=== PATIENT | female | born 1975 | race Caucasian/White ===

== ENCOUNTER 2017-03-05 07:53 | Day surgery (SDC) | payer BC ==
[2017-03-05 08:48] LABS: PROTHROMBIN TIME 13.3 SEC (11.4-15.4)
[2017-03-05 08:49] LABS: PARTIAL THROMBOPLASTIN TIME 36.5 SEC (23.5-35.8)
--- NOTE | 2017-03-05 11:07 | RADIOLOGY REPORT (SQ) ---
EXAM DESCRIPTION: LUMBAR PUNCTURE; FLUORO/NEEDLE PLACEMENT/SPINE COMPLETED DATE/TIME: 03/05/2017 10:57 am REASON FOR STUDY: HEADACHES R51 HEADACHE COMPARISON: None. FLUOROSCOPY TIME: 10 seconds 1 digital radiographic images saved to PACS. TECHNIQUE: Fluoroscopic guided lumbar puncture. LIMITATIONS: None. PROCEDURE: After written consent and assessment were obtained, the patient was brought into the fluo roscopy room and placed prone on the table. The patient's lower back was prepped in a sterile fashio n and an entry site was selected under live fluoroscopic guidance. The entry site was anesthetized wi th 4.5 mL of 1% lidocaine. A 22 gauge needle was advanced through the skin and into the thecal sac at the right paracentral L2-3 level. After approximately 8 ml was drained, the needle was removed and a sterile bandage was placed of the site. Specimens were sent to the lab for testing. A fluoroscopic spot image was saved to PACS confirming level access. FINDINGS: Clear CSF, opening pressure 12 cm of water, closing pressure 10 cm of water. Fluid sent f or testing as per Dr. Capps IMPRESSION: Lumbar puncture under fluoroscopy. No immediate complication. COMMENT: Patient medication list reviewed: Yes- Quality ID# [id number]:Eligible professional attests to doc umenting in the medical record they obtained, updated, or reviewed the patient's current medications. . Quality ID 145: Final reports for procedures using fluoroscopy that document radiation exposure marcelina hpil, or exposure time and number of fluorographic images (if radiation exposure indices are not avail able) TECHNICAL DOCUMENTATION: JOB ID: [id number] [employer]- All Rights Reserved
--- NOTE | 2017-03-05 11:07 | RADIOLOGY REPORT (SQ) ---
EXAM DESCRIPTION: LUMBAR PUNCTURE; FLUORO/NEEDLE PLACEMENT/SPINE COMPLETED DATE/TIME: 03/05/2017 10:57 am REASON FOR STUDY: HEADACHES R51 HEADACHE COMPARISON: None. FLUOROSCOPY TIME: 10 seconds 1 digital radiographic images saved to PACS. TECHNIQUE: Fluoroscopic guided lumbar puncture. LIMITATIONS: None. PROCEDURE: After written consent and assessment were obtained, the patient was brought into the fluo roscopy room and placed prone on the table. The patient's lower back was prepped in a sterile fashio n and an entry site was selected under live fluoroscopic guidance. The entry site was anesthetized wi th 4.5 mL of 1% lidocaine. A 22 gauge needle was advanced through the skin and into the thecal sac at the right paracentral L2-3 level. After approximately 8 ml was drained, the needle was removed and a sterile bandage was placed of the site. Specimens were sent to the lab for testing. A fluoroscopic spot image was saved to PACS confirming level access. FINDINGS: Clear CSF, opening pressure 12 cm of water, closing pressure 10 cm of water. Fluid sent f or testing as per Dr. Capps IMPRESSION: Lumbar puncture under fluoroscopy. No immediate complication. COMMENT: Patient medication list reviewed: Yes- Quality ID# [id number]:Eligible professional attests to doc umenting in the medical record they obtained, updated, or reviewed the patient's current medications. . Quality ID 145: Final reports for procedures using fluoroscopy that document radiation exposure marcelina phil, or exposure time and number of fluorographic images (if radiation exposure indices are not avail able) TECHNICAL DOCUMENTATION: JOB ID: [id number] [employer]- All Rights Reserved
[2017-03-05 12:30] VITALS: BP 122/80
[2017-03-05 12:57] LABS: APPEARANCE ALL TUBES CLEAR; RBC DILUENT USED NONE USED; RBC DILUTION FACTOR 1; RBC SIDE 1 1; RBC SIDE 2 3; TOTAL RBC SQUARES COUNTED 225
[2017-03-05 12:58] LABS: WHITE BLOOD CELL,CSF 2 /uL (0-5)
[2017-03-05 13:05] LABS: GLUCOSE,CSF 51 mg/dL (40-70)
[2017-03-06 16:39] LABS: ALBUMIN CSF 34 mg/dL (11-48); ALBUMIN SERUM 4.1 g/dL (3.5-5.5); CSF IGG INDEX 0.5 (0.0-0.7); IGG/ALBUMIN RATIO CSF 0.08 (0.00-0.25); IMMUNOGLOBULIN G CSF 2.8 mg/dL (0.0-8.6); IMMUNOGLOBULIN G SERUM 662 mg/dL (700-1600)
[2017-03-07 11:15] LABS: CSF/SERUM ALBUMIN INDEX 8 (0-8)
== END 2017-03-05 12:25 | disposition home or self-care (01) ==
LOC: RAD 07:53
PROVIDERS: ATTEND Specialist
PROC: 009U3ZX Drainage of Spinal Canal, Percutaneous Approach, Diagnostic (ICD-10-PCS; principal; 2017-03-05)
DX: G35 Multiple sclerosis (principal); R51 Headache; Z87.891 Personal history of nicotine dependence
CPT/HCPCS: 36415; 62270; 77003; 82784; 82945; 83916; 84157; 85610; 85730; 87070; 87205; 89050

== ENCOUNTER 2019-11-14 16:19 | Observation (INO) | payer BC ==
[2019-11-14] MEDS ORDERED: RINGERS SOLUTION,LACTATED 1,000 ML IV ONE (16:33)
[2019-11-14] MEDS ORDERED: ONDANSETRON HCL INJ/PF 4 MG/2 ML SDV IV ONE (16:33)
[2019-11-14] MEDS ORDERED: KETOROLAC TROMETHAMINE INJ/PF 30 MG/1 ML SDV IV ONE (16:47)
[2019-11-14 16:49] LABS: ABSOLUTE BASOPHILS # (AUTO) 0.1 10^3/uL (0.0-0.2); ABSOLUTE EOSINOPHILS # (AUTO) 0.1 10^3/uL (0.0-0.6); ABSOLUTE LYMPHOCYTES (AUTO) 2.4 10^3/uL (0.5-4.7); ABSOLUTE MONOCYTES (AUTO) 0.4 10^3/uL (0.1-1.4); ABSOLUTE NEUT (AUTO) 3.9 10^3/uL (1.7-8.2); BASOPHILS % (AUTO) 0.8 % (0-2); EOSINOPHILS % (AUTO) 0.9 % (0-6); HEMATOCRIT 34.8 % (36.0-47.0); HEMOGLOBIN 12.4 g/dL (12.0-15.5); MEAN CORPUSCULAR HEMOGLOBIN 33.9 pg (27.0-33.4); MEAN CORPUSCULAR HGB CONC 35.7 g/dL (32.0-36.0); MEAN CORPUSCULAR VOLUME 95 fl (80-97); MONOCYTES % (AUTO) 6.5 % (3-13); PLATELET COUNT 359 10^3/uL (150-450); RED BLOOD COUNT 3.66 10^6/uL (3.72-5.28); RED CELL DISTRIBUTION WIDTH 12.5 % (11.5-14.0); SEGMENTED NEUTROPHILS % (AUTO) 56.8 % (42-78); TOTAL CELLS COUNTED % (AUTO) 100 %; WHITE BLOOD COUNT 6.8 10^3/uL (4.0-10.5)
--- NOTE | 2019-11-14 16:50 | ER Document Report ---
ED General - General Stated Complaint: SEIZURE Time Seen by Provider: 11/14/19 16:27 Notes: 44-year-old woman presents to the emergency department with episodes of shaking- like behavior's EMS is called and she was given 5 mg of Versed intranasally. Patient was brought to the emergency department here when she was on the gurney began having shaking episodes which spontaneously stopped. Minutes afterwards patient was alert and able to communicate effectively. She denies a history of known migraines. She complains of headache and chest pressure. Denies any inju ry or associated pain related to the episodes. Daughter now at the bedside 1650 p.m., she notes that her mom was with friends at the driving range. Patient states that she felt like she was going to pass out, friends describe her as passing out, responsive and then having shaking episodes x4. EMS was called. TRAVEL OUTSIDE OF THE [place] IN LAST 30 DAYS: No - Related Data Allergies/Adverse Reactions: No Known Allergies Allergy (Verified 11/08/12 11:45) Past Medical History - Social History Smoking Status: Unknown if Ever Smoked Family History: CAD, Other - [place] - Past Medical History Cardiac Medical History: Denies: Hx Coronary Artery Disease, Hx Heart Attack, Hx Hypertension Pulmonary Medical History: Reports: Hx COPD, Hx Pneumonia Denies: Hx Asthma, Hx Bronchitis Neurological Medical History: Reports: Hx Migraine. Denies: Hx Cerebrovascular Accident, Hx Seizures Musculoskeletal Medical History: Denies Hx Arthritis Psychiatric Medical History: Reports: Hx Anxiety, Hx Depression Past Surgical History: Reports: Hx Hysterectomy - Immunizations Hx Diphtheria, Pertussis, Tetanus Vaccination: Yes Review of Systems - Review of Systems Notes: Constitutional: Negative for fever. HENT: Negative for sore throat. Eyes: Negative for visual changes. Cardiovascular: + chest pain. Respiratory: Negative for shortness of breath. Gastrointestinal: Negative for abdominal pain, vomiting or diarrhea. Genitourinary: Negative for dysuria. Musculoskeletal: Negative for back pain. Skin: Negative for rash. Neurological: + Syncope + seizure-like activity, + headaches 10 point ROS negative except as marked above and in HPI. Physical Exam - Vital signs Vitals: Resp BP Pulse Ox 21 H 149/95 H 99 11/14/19 17:01 11/14/19 17:01 11/14/19 17:01 - Notes Notes: PHYSICAL EXAMINATION: Physical Exam: General: Well-nourished well-developed in no acute distress except episodic shaking and itching. HEENT: NC/AT, pupils equal round and reactive to light, MM moist,nares clear, oropharynx clear, airway patent Neck: supple, no adenopathy, no masses. Good range of motion Lungs: clear, no wheezing, no rales no rhonchi CVS: Regular rate and rhythm no murmur gallop or rub Abdomen: Soft, active, nontender, no masses, no hepatosplenomegaly Ext: No edema, clubbing or cyanosis. Neuro: Alert and responsive, moving all 4 extremities on command, cranial nerves intact, no focal findings Skin: Intact no open lesions, no rash PSYCH: Anxious, shaky, when having the shaking episodes, questions appropriately, denies new stressors. Course - Re-evaluation Re-evalutation: 11/14/19 23:33 Patient is more more episodes of shaking in the emergency department with arms clenched and shaking her arms and legs. She has been able to answer questions and respond during the episodes and coached to take deep breaths and relax. The episodes resolve however, return. She is given Ativan on occasion and resolution of the symptoms. She has no history of seizures in the past. Patient notes that she was started on Xanax after and ended a relationship/separation approximately 5 years ago. He denies any new stressors. States that she is began having chest pain on 11/13/2019, the episodes have been intermittent and continued with a worsening episode today prior to the syncopal episode and seizure-like activity. 11/14/19 23:37 HEART Score: HEART score for chest pain patients Score Slightly suspicious 0 ECG Normal 0 45-65 year 1 Risk factors No risk factors known 0 Troponin =normal limit 0 Total 1 If HEART score is = 3 AND both tronponin measurments are normal, the 30 day risk of a major adverse cardiac event (all-cause mortality, myocardia infarction or need for coronary revscularization) is < 1% (Sensitivity 100%, NPV 100%). 11/15/19 01:01 I discussed the patient with the hospitalist Dr. Cloud ,he will admit the patient to telemetry for close monitoring and further evaluation. - Vital Signs Vital signs: Temp Pulse Resp BP Pulse Ox 97.6 F 14 117/72 99 11/14/19 23:40 11/15/19 00:01 11/15/19 00:01 11/15/19 00:01 - Laboratory Result Diagrams: 11/14/19 16:30 11/14/19 16:30 Laboratory results interpreted by me: 11/14/19 11/14/19 16:30 17:01 RBC 3.66 L Hct 34.8 L MCH 33.9 H Urine Blood SMALL H I have reviewed laboratory data and used this information for the treatment decisions regarding the patient. - Diagnostic Test Radiology reviewed: Image reviewed, Reports reviewed - CT head: No acute findings Chest x-ray: No acute infiltrate or effusion, normal cardiac silhouette - EKG Interpretation by Me EKG shows normal: Sinus rhythm - Normal sinus rhythm, rate 66. No acute ST or T wave abnormalities seen. Discharge - Discharge Clinical Impression: Episode of shaking Syncope Qualifiers: Syncope type: unspecified Qualified Code(s): R55 - Syncope and collapse Chest pain Qualifiers: Chest pain type: unspecified Qualified Code(s): R07.9 - Chest pain, unspecified Condition: Good Disposition: ADMITTED OBSERVATION Admitting Provider: Pedro Luis (Hospitalist) Unit Admitted: Telemetry
[2019-11-14 17:10] LABS: ALBUMIN 4.2 g/dL (3.5-5.0); ALKALINE PHOSPHATASE 52 U/L (38-126); ANION GAP 8 (5-19); ASPARTATE AMINO TRANSFERASE 22 U/L (14-36); BILIRUBIN,TOTAL 0.3 mg/dL (0.2-1.3); BLOOD UREA NITROGEN 12 mg/dL (7-20); CALCIUM 9.5 mg/dL (8.4-10.2); CARBON DIOXIDE 26 mmol/L (22-30); CHLORIDE 107 mmol/L (98-107); GLUCOSE 89 mg/dL (75-110); POTASSIUM 3.7 mmol/L (3.6-5.0)
[2019-11-14 17:20] LABS: CREATINE KINASE MB 1.34 ng/mL (<4.55)
[2019-11-14 17:28] LABS: TROPONIN I < 0.012 ng/mL
[2019-11-14 17:37] LABS: APPEARANCE,URINE CLEAR; BILIRUBIN,URINE NEGATIVE (NEGATIVE); COLOR,URINE COLORLESS; GLUCOSE, URINE NEGATIVE (NEGATIVE); KETONES,URINE NEGATIVE (NEGATIVE); LEUKOCYTE ESTERASE,URINE NEGATIVE (NEGATIVE); NITRITE,URINE NEGATIVE (NEGATIVE); PROTEIN,URINE NEGATIVE (NEGATIVE); URINE SPECIFIC GRAVITY 1.004; UROBILINOGEN,URINE NEGATIVE mg/dL (<2.0)
--- NOTE | 2019-11-14 17:44 | RADIOLOGY REPORT (SQ) ---
EXAM DESCRIPTION: CHEST SINGLE VIEW COMPLETED DATE/TIME: 11/14/2019 4:25 pm REASON FOR STUDY: Chest pain COMPARISON: 03/04/2016 EXAM PARAMETERS: NUMBER OF VIEWS: One view. TECHNIQUE: Single frontal radiographic view of the chest acquired. RADIATION DOSE: NA LIMITATIONS: None. FINDINGS: LUNGS AND PLEURA: Lungs are hyperinflated. No focal consolidation or pleural effusion. N o pneumothorax. MEDIASTINUM AND HILAR STRUCTURES: No masses. Contour normal. HEART AND VASCULAR STRUCTURES: Heart normal in size. Normal vasculature. BONES: No acute findings. HARDWARE: None in the chest. OTHER: No other significant finding. IMPRESSION: NO ACUTE RADIOGRAPHIC FINDING IN THE CHEST. TECHNICAL DOCUMENTATION: JOB ID: [id number] 2010 [employer]- All Rights Reserved Reading location - IP/workstation name: [email or web address]
[2019-11-14] MEDS ORDERED: LORAZEPAM INJ 2 MG/1 ML VIAL IV ONE (17:55)
--- NOTE | 2019-11-14 18:01 | RADIOLOGY REPORT (SQ) ---
EXAM DESCRIPTION: CT HEAD WITHOUT COMPLETED DATE/TIME: 11/14/2019 4:21 pm REASON FOR STUDY: New Seizure COMPARISON: None. TECHNIQUE: Axial images acquired through the brain without intravenous contrast. Images reviewed wi th bone, brain and subdural windows. Additional sagittal and coronal reconstructions were generated. Images stored on PACS. All CT scanners at this facility use dose modulation, iterative reconstruction, and/or weight based d osing when appropriate to reduce radiation dose to as low as reasonably achievable (ALARA). [facility]: Dose Right [facility]: CareDose [facility]: Dose Right [facility]: Teradose 4D [facility]: Manyeta RADIATION DOSE: CT Rad equipment meets quality standard of care and radiation dose reduction techniq ues were employed. CTDIvol: 53.2 mGy. DLP: 991 mGy-cm. mGy. LIMITATIONS: None. FINDINGS: VENTRICLES: Normal size and contour. CEREBRUM: No masses. No hemorrhage. No midline shift. No evidence for acute infarction. Normal gra y/white matter differentiation. No areas of low density in the white matter. CEREBELLUM: No masses. No hemorrhage. No alteration of density. No evidence for acute infarction. EXTRAAXIAL SPACES: No fluid collections. No masses. ORBITS AND GLOBE: No intra- or extraconal masses. Normal contour of globe without masses. CALVARIUM: No fracture. PARANASAL SINUSES: No fluid or mucosal thickening. SOFT TISSUES: No mass or hematoma. OTHER: No other significant finding. IMPRESSION: No acute intracranial hemorrhage, mass, or evidence of acute territorial infarct. EVIDENCE OF ACUTE STROKE: NO. COMMENT: Quality ID # [id number]: Final reports with documentation of one or more dose reduction techniques (e.g., Automated exposure control, adjustment of the mA and/or kV according to patient size, use of iterative reconstruction technique) TECHNICAL DOCUMENTATION: JOB ID: [id number] 2010 [employer]- All Rights Reserved Reading location - IP/workstation name: [email or web address]
--- NOTE | 2019-11-14 21:34 | EKG REPORT ---
SEVERITY:- NORMAL ECG - SINUS RHYTHM : Confirmed by: González Gilmore MD 14-Nov-2019 21:32:53
[2019-11-14] MEDS ORDERED: ALPRAZOLAM 0.5 MG TABLET PO ONE (21:43)
[2019-11-14] MEDS ORDERED: ACETAMINOPHEN 325 MG TABLET PO ONE (21:49)
[2019-11-14 22:16] LABS: URINE AMPHETAMINES SCREEN NEGATIVE; URINE BARBITURATES SCREEN NEGATIVE; URINE BENZODIAZEPINES SCREEN UNCONFIRMED POSITIVE; URINE COCAINE SCREEN NEGATIVE; URINE MARIJUANA (THC) SCREEN NEGATIVE; URINE METHADONE SCREEN NEGATIVE; URINE PHENCYCLIDINE SCREEN NEGATIVE
--- NOTE | 2019-11-15 01:41 | PDOC H&P ---
History of Present Illness Admission Date/PCP: 11/15/19 01:31 ZENAIDA MILLER Patient complains of: syncope and siezure like activity History of Present Illness: PERCY GUERRIER is a 44 year old female with a past medical history of migraine headaches and not much else [place] She states that she passed out in the truck. People driving with her reported that she was shaking. When she woke up she was still shaking. She does not remember the event. There are various symptoms that she reports over the several days prior including chest pain. It was dull and constant but she also characterizes it as shooting. She felt lightheaded and nauseous but no vomiting. She states that she had diplopia yesterday. There was no urinary incontinence and no tongue biting. She reports that nothing has happened like this before. The emergency department she was shaking and Dr. Daniel was able to talk her through to settle her and stop shaking. Evaluation revealed a normal CT scan and chest x- ray. EKG was normal. Serum chemistries and CBC were normal as well. Her troponins were less than 0.012. She will be admitted to the hospital service and monitored on telemetry overnight. Past Medical History Cardiac Medical History: Denies: Coronary Artery Disease, Myocardial Infarction, Hypertension Pulmonary Medical History: Reports: Chronic Obstructive Pulmonary Disease (COPD), Pneumonia Denies: Asthma, Bronchitis Neurological Medical History: Reports: Migraine Denies: Seizures Musculoskeltal Medical History: Denies: Arthritis Psychiatric Medical History: Reports: Depression Hematology: Reports: Anemia Past Surgical History Past Surgical History: Reports: Hysterectomy Social History Information Source: Patient Lives with: Family Smoking Status: Former Smoker Electronic Cigarette use?: No Frequency of Alcohol Use: Social Hx Recreational Drug Use: No Hx Prescription Drug Abuse: No - Advance Directive Resuscitation Status: Full Code Family History Family History: CAD, Other - [place] Parental Family History Reviewed: Yes Children Family History Reviewed: Yes Sibling(s) Family History Reviewed.: Yes Medication/Allergy Home Medications: Alprazolam 1 tab PO TIDP PRN 03/04/16 Butalbital/Acetaminophen [Bupap 50 mg-300 mg Tablet] 1 tab PO ASDIR PRN 03/04/16 Estradiol 1 tab PO DAILY 03/04/16 Topiramate 1 tab PO DAILY 03/04/16 Allergies/Adverse Reactions: No Known Allergies Allergy (Verified 11/08/12 11:45) Physical Exam Vital Signs: Temp Pulse Resp BP Pulse Ox 97.6 F 14 117/72 99 11/14/19 23:40 11/15/19 00:01 11/15/19 00:01 11/15/19 00:01 Intake & Output 11/13/19 11/14/19 11/15/19 05:59 06:59 06:59 Intake Total 1000 Balance 1000 Weight 55 kg General appearance: PRESENT: no acute distress, cooperative, well-developed Head exam: PRESENT: atraumatic, normocephalic Eye exam: PRESENT: conjunctiva pink, EOMI. ABSENT: scleral icterus Ear exam: PRESENT: normal external ear exam. ABSENT: bleeding, drainage Teeth exam: ABSENT: poor dentation Neck exam: ABSENT: carotid bruit, JVD, lymphadenopathy Respiratory exam: PRESENT: clear to auscultation ivet, symmetrical, unlabored. ABSENT: prolonged expiratory phas, rales, rhonchi, tachypnea, wheezes Cardiovascular exam: PRESENT: RRR, +S1, +S2. ABSENT: systolic murmur GI/Abdominal exam: PRESENT: diminished bowel sounds, soft, tenderness - Patient reports that her abdomen is always somewhat tender.. ABSENT: distended, guarding Rectal exam: PRESENT: deferred Gentrourinary exam: ABSENT: indwelling catheter Extremities exam: ABSENT: joint swelling, pedal edema Musculoskeletal exam: PRESENT: ambulatory, full ROM, normal inspection. ABSENT: deformity Neurological exam: PRESENT: alert - Sleepy but responds to questions, awake, oriented to person, oriented to place, oriented to time, oriented to situation, CN II-XII grossly intact. ABSENT: motor sensory deficit Psychiatric exam: PRESENT: flat affect. ABSENT: agitated, anxious Focused psych exam: ABSENT: delusional, restlessness Skin exam: PRESENT: dry, normal color, warm, other - Multiple tattoos. ABSENT: rash Results Laboratory Results: 11/14/19 16:30 11/14/19 16:30 11/14/19 11/14/19 11/14/19 16:30 16:30 17:01 WBC 6.8 RBC 3.66 L Hgb 12.4 Hct 34.8 L MCV 95 MCH 33.9 H MCHC 35.7 RDW 12.5 Plt Count 359 Seg Neutrophils % 56.8 Sodium 141.0 Potassium 3.7 Chloride 107 Carbon Dioxide 26 Anion Gap 8 BUN 12 Creatinine 0.83 Est GFR ( Amer) > 60 Glucose 89 Calcium 9.5 Magnesium 2.1 Total Bilirubin 0.3 AST 22 Alkaline Phosphatase 52 Total Protein 7.0 Albumin 4.2 Urine Color COLORLESS Urine Appearance CLEAR Urine pH 7.0 Ur Specific [place] 1.004 Urine Protein NEGATIVE Urine Glucose (UA) NEGATIVE Urine Ketones NEGATIVE Urine Blood SMALL H Urine Nitrite NEGATIVE Ur Leukocyte Esterase NEGATIVE Urine WBC (Auto) 0 Urine RBC (Auto) 0 11/14/19 11/14/19 11/14/19 16:30 16:30 21:58 Creatine Kinase 67 CK-MB (CK-2) 1.34 Troponin I < 0.012 < 0.012 Impressions: Chest X-Ray 11/14/19 16:49 IMPRESSION: NO ACUTE RADIOGRAPHIC FINDING IN THE CHEST. Head CT 11/14/19 17:01 IMPRESSION: No acute intracranial hemorrhage, mass, or evidence of acute territorial infarct. EVIDENCE OF ACUTE STROKE: NO. Assessment and Plan - Diagnosis (1) Chest pain Qualifiers: Chest pain type: unspecified Qualified Code(s): R07.9 - Chest pain, unspecified Is this a current diagnosis for this admission?: Yes Plan: 11/15/2019 Her symptoms are not very focal. She characterizes the discomfort in several different ways. We will check serial troponin enzymes. It may very well be GI or anxiety related. (2) Episode of shaking Is this a current diagnosis for this admission?: Yes Plan: 11/15/2019 I discussed this with the emergency room physician. He felt that this was not true epilepsy but possibly pseudoseizure. I have ordered a prolactin level as this is usually elevated acutely with seizure. Imaging of the brain did not show any acute infarct. I did explain to the patient that medications were not indicated typically after a single seizure. I suggested that she follow-up with her PCP and possibly neurology. (3) Syncope Qualifiers: Syncope type: unspecified Qualified Code(s): R55 - Syncope and collapse Is this a current diagnosis for this admission?: Yes Plan: 11/15/2019 Monitor on telemetry. It is hard to know if this is syncope or related to the shaking episode. - Time Time Spent with patient: 35 or more minutes Medications reviewed and adjusted accordingly: Yes Anticipated discharge: Home Within: within 48 hours
[2019-11-15] MEDS ORDERED: MAG HYDROX/AL HYDROX/SIMETH SUSP 30 ML UDCUP PO PRN (01:53)
[2019-11-15] MEDS ORDERED: NORMAL SALINE 1000 ML 1,000 ML IV PRN (01:53)
[2019-11-15] MEDS: ACETAMINOPHEN 325 MG TABLET PO PRN ×2 (05:44→12:46)
[2019-11-15] MEDS: HEPARIN SOD (PORCINE) 5,000 UNIT/ML 1 ML VIAL SUBCUT SCH ×3 (05:45→21:59)
[2019-11-15] MEDS: ONDANSETRON HCL INJ/PF 4 MG/2 ML SDV IV PRN ×2 (07:00→15:21)
[2019-11-15] MEDS: TOPIRAMATE 100 MG TABLET PO SCH (09:35)
[2019-11-15] MEDS: FAMOTIDINE 20 MG TABLET PO SCH ×2 (09:35→22:02)
--- NOTE | 2019-11-15 11:58 | RADIOLOGY REPORT (SQ) ---
EXAM DESCRIPTION: MRI HEAD WITHOUT COMPLETED DATE/TIME: 11/15/2019 10:44 am REASON FOR STUDY: syncope COMPARISON: CT from 1 day previously. TECHNIQUE: Multiplanar imaging includes non-contrasted T1, T2, FLAIR, and diffusion with ADC map seq uences. Images stored on PACS. LIMITATIONS: None. FINDINGS: ANATOMY: No anomalies. Normal vascular flow voids. Pituitary fossa normal. CSF SPACES: Normal in size and contour. No hemorrhage. CEREBRUM: Sulci and gyri normal in size and contour. Normal white matter signal on FLAIR imaging. No evidence of hemorrhage, mass, or extraaxial fluid collection. POSTERIOR FOSSA: No signal alteration. No hemorrhage. No edema, masses or mass effect. Internal vipin tory canals, cerebello-pontine angles, mastoids normal. DIFFUSION IMAGING: Negative for acute or sub-acute infarction. ORBITS: No masses. Globes normal. PARANASAL SINUSES: No fluid levels. Mucosa normal. OTHER: No other significant finding. IMPRESSION: NORMAL MRI OF THE BRAIN WITHOUT INTRAVENOUS GADOLINIUM CONTRAST. EVIDENCE OF ACUTE STROKE: NO. TECHNICAL DOCUMENTATION: JOB ID: [id number] 2010 [employer]- All Rights Reserved Reading location - IP/workstation name: [email or web address]
[2019-11-15] MEDS: BUTALB/ACETAMINOPHEN/CAFFEINE 1 TAB EACH PO PRN ×2 (16:12→20:12)
--- NOTE | 2019-11-15 17:50 | RADIOLOGY REPORT (SQ) ---
EXAM DESCRIPTION: CAROTID DOPPLER COMPLETED DATE/TIME: 11/15/2019 4:00 pm REASON FOR STUDY: syncope COMPARISON: None. TECHNIQUE: Grayscale ultrasound, Doppler velocity and spectra, and color Doppler images acquired of the extra-cranial carotid and vertebral arteries. Images stored on PACS. LIMITATIONS: None. FINDINGS: RIGHT CAROTID CCA Velocities: Within normal limits. ICA Velocities Peak systolic 0.77 m/s. End diastolic 0.38 m/s. Proximal ICA/CCA peak systolic ratio 1.0. Soft plaque without high-grade luminal compromise suggested. LEFT CAROTID CCA Velocities: Within normal limits. ICA Velocities Peak systolic 1.3 m/s. End diastolic 0.5 m/s. Proximal ICA/CCA peak systolic ratio 1.6. Soft plaque without high-grade luminal narrowing suggested. VERTEBRAL ARTERIES: Antegrade flow. Normal waveforms. SUBCLAVIAN ARTERIES: No finding. OTHER: No other significant finding. IMPRESSION: NO HEMODYNAMICALLY SIGNIFICANT STENOSIS. COMMENT: Quality ID #[id number]: Velocity criteria are extrapolated from the diameter data as defined by t he Society of Radiologists in Ultrasound Consensus Conference. Radiology 2003: 229; 340-346. TECHNICAL DOCUMENTATION: JOB ID: [id number] [employer]- All Rights Reserved Reading location - IP/workstation name: [email or web address]
--- NOTE | 2019-11-15 17:52 | XCELERA REPORT ---
[address] [address] Transthoracic Echocardiogram Report Name: PERCY GUERRIER Age: 44 yrs Gender: Female : 1975 Patient Status: Inpatient Patient Location: [address] [place], [place] [address] Study Date: 11/15/2019 09:55 AM Height: 65 in Weight: 110 lb BSA: 1.5 m2 Procedure: A two-dimensional transthoracic echocardiogram with color flow and Doppler was performed. The study was technically limited with all images being suboptimal in quality. Reason For Study: syncope History: syncope. Ordering Physician: VEL SCHWAB Performed By: Vanessa Magana Interpretation Summary The left ventricle is normal in size. There is normal left ventricular wall thickness. LV EF is 55% to 60% Left ventricular systolic function is normal. Doppler measurements suggest impaired left ventricular relaxation, which is associated with grade I/IV or mild diastolic dysfunction The left ventricular wall motion is normal. There is no thrombus. Cannot assess ASD ,VSD , or PFO. The right ventricle is normal in size and function. The right atrium is normal. The left atrial size is normal. There is no evidence of mitral valve prolapse. There is no vegetation seen on the mitral valve. There is no mitral valve stenosis. There is a trace amount of mitral regurgitation There is no aortic valvular vegetation. There is no aortic valve stenosis There is no LVOT obstruction. No aortic regurgitation is present. There is no tricuspid stenosis. There is a trace amount of tricuspid regurgitation Right ventricular systolic pressure is normal. RVSP is 18 to 23 mm of Hg , with RA mean of 5 to 10. There is no pulmonic valvular stenosis. There is no pulmonic valvular regurgitation. The aortic root is normal size. The inferior vena cava appeared normal and decreased > 50% with respiration (RAP 5-10 mmHg) There is no pericardial effusion. MMode/2D Measurements & Calculations RVDd: 1.6 cm LVIDd: 4.4 cm FS: 28.2 % Ao root diam: 2.5 cm IVSd: 0.66 cm LVIDs: 3.2 cm EDV(Teich): Ao root area: LVPWd: 0.68 cm 89.0 ml 4.8 cm2 ESV(Teich): 40.3 ml EF(Teich): 54.7 % EDV(MOD-sp4): SV(MOD-sp4): 44.4 ml 25.9 ml ESV(MOD-sp4): 18.4 ml EF(MOD-sp4): 58.4 % Doppler Measurements & Calculations MV E max marj: MV dec slope: Ao V2 max: LV V1 max P.6 cm/sec 103.2 cm/sec 2.8 mmHg MV A max marj: 309.8 cm/sec2 Ao max PG: LV V1 max: 84.3 cm/sec MV dec time: 0.22 sec4.3 mmHg 84.3 cm/sec MV E/A: 0.83 PA V2 max: TR max marj: 86.4 cm/sec 179.0 cm/sec PA max P.0 mmHg TR max P.8 mmHg Left Ventricle The left ventricle is normal in size. There is normal left ventricular wall thickness. LV EF is 55% to 60%. Left ventricular systolic function is normal. Doppler measurements suggest impaired left ventricular relaxation, which is associated with grade I/IV or mild diastolic dysfunction. The left ventricular wall motion is normal. There is no thrombus. Cannot assess ASD ,VSD , or PFO. Right Ventricle The right ventricle is normal in size and function. Atria The right atrium is normal. The left atrial size is normal. Mitral Valve There is no evidence of mitral valve prolapse. There is no vegetation seen on the mitral valve. There is no mitral valve stenosis. There is a trace amount of mitral regurgitation. Aortic Valve There is no aortic valvular vegetation. There is no aortic valve stenosis. There is no LVOT obstruction. No aortic regurgitation is present. Tricuspid Valve There is no tricuspid stenosis. There is a trace amount of tricuspid regurgitation. Right ventricular systolic pressure is normal. RVSP is 18 to 23 mm of Hg , with RA mean of 5 to 10. Pulmonic Valve There is no pulmonic valvular stenosis. There is no pulmonic valvular regurgitation. Great Vessels The aortic root is normal size. The inferior vena cava appeared normal and decreased > 50% with respiration (RAP 5-10 mmHg). Effusions There is no pericardial effusion. : VEL SCHWAB Lakshmi
--- NOTE | 2019-11-15 19:25 | Progress Note ---
Provider Note Provider Note: Briefly gone over the patient's MRI scan report with the patient and her daughter. No pathology seen. Actually witnessed about a 2-minute episode early this morning the patient had a carpal spasms and was in a decorticate position with her arms with her knees curled up into her abdomen and pedal spasms. Patient was not responding during this episode. sHe had no tongue biting no bladder incontinence. Following this episode she was tired but I would not consider her to be post ictal. Patient had no tonic-clonic activity. I have stressed to the patient that she needs a very thorough neurology work-up including a sleep deprived EEG and possibly 24-hour EEG as well, however she probably needs to be seen at [facility] neurology since she is an employee of [employer]. Carotid Dopplers and echocardiogram results are pending
[2019-11-15] MEDS: ALPRAZOLAM 0.5 MG TABLET PO PRN (22:02)
[2019-11-16] MEDS: ONDANSETRON HCL INJ/PF 4 MG/2 ML SDV IV PRN ×3 (04:57→22:23)
[2019-11-16] MEDS: BUTALB/ACETAMINOPHEN/CAFFEINE 1 TAB EACH PO PRN ×3 (04:58→22:23)
[2019-11-16] MEDS: HEPARIN SOD (PORCINE) 5,000 UNIT/ML 1 ML VIAL SUBCUT SCH ×3 (05:00→21:23)
[2019-11-16] MEDS: TOPIRAMATE 100 MG TABLET PO SCH (10:02)
[2019-11-16] MEDS: FAMOTIDINE 20 MG TABLET PO SCH ×2 (10:02→22:20)
[2019-11-16] MEDS: ALPRAZOLAM 0.5 MG TABLET PO PRN (15:46)
--- NOTE | 2019-11-16 17:43 | NEURO WORKBENCH EEG REPORT ---
EEG Report Patient: Andrei Dent ID: [id number] Referred by: Leah Stack DOS: 11/16/2019 Medications: famotidine, porcine, topamax History This is a 44 year old right handed woman with a history of COPD, pneumonia, deafness, hysterectomy, anxiety, depression, anemia, neck and nose surgery admitted with syncope, chest pain, and seizure-like activity. This EEG was requested for seizure. EEG Interpretation This EEG was recorded in the awake and minimal drowsy states. The EEG is infiltrated with myogenic artifact throughout the recording impairing reliable interpretation. The awake EEG is characterized by a moderately-organized background without a noted posterior dominant rhythm. The remainder of the background consisted of alpha and beta activity. Drowsiness was minimally noted and characterized by slowing of the background rhythms. Photic stimulation resulted in a moderate driving response. Hyperventilation resulted in mild generalized background slowing. There were no epileptiform abnormalities noted. The EKG showed a regular rhythm but was impaired by significant artifact as well. EEG Classification Technically poor study EEG Impression This EEG is technically a poor study. However, there was excessive beta activity which may be seen with certain medications (e.g. benzodiazepines). There was also significant myogenic artifact that impaired interpretation of the EEG and EKG. If clinically indicated, a repeat EEG (and EKG) may be considered. INTERPRETING NEUROLOGIST: Aleyda Hale MD, FRCPC Board Certified in Neurology, with special qualification in Child Neurology, and in Clinical Neurophysiology [facility]
--- NOTE | 2019-11-16 18:16 | PDOC PROGRESS REPORT ---
Subjective Progress Note for:: 11/16/19 Subjective:: Patient was seen on morning rounds with her daughter present. She was noted to be lying in bed, comfortably, on room air. She is disheveled, withdrawn with delayed/sluggish responses and physical movements. She is noted to be intermittently tearful during our conversation. She does admit to increased life stressors but declines to tell me specifically what has occurred recently. She does admit to severe anxiety and possibility of seizure like activity/syncopal episodes being related to "strong emotions." She denies fever, chills, chest pain, palpitations, dyspnea, orthopnea, abdominal pain, nausea, vomiting, diarrhea. She does report poor appetite. She also reports an additional, seizure-like activity, episode occurring this morning witnessed by dietary and nursing staff. Per nursing, she had atypical seizure activity/motor movements remained alert, and symptoms abated with comforting. Nursing is concerned about patient's mental health; agrees that the patient is withdrawn and appears to have a somewhat limited support system. Reason For Visit: SYNCOPE,CHEST PAIN,SEIZURE LIKE ACTIVITY Physical Exam Vital Signs: Temp Pulse Resp BP Pulse Ox 98.0 F 94 20 121/78 99 11/16/19 16:00 11/16/19 16:00 11/16/19 16:00 11/16/19 16:00 11/16/19 16:00 Intake & Output 11/15/19 11/16/19 11/17/19 06:59 06:59 06:59 Intake Total 1000 1548 240 Output Total 400 Balance 1000 1548 -160 Weight 49.9 kg 49.9 kg General appearance: PRESENT: no acute distress, disheveled, thin, well- developed, well-nourished Head exam: PRESENT: atraumatic, normocephalic Eye exam: PRESENT: conjunctiva pink, EOMI, PERRLA. ABSENT: scleral icterus Ear exam: PRESENT: normal external ear exam Mouth exam: PRESENT: moist, tongue midline Respiratory exam: PRESENT: clear to auscultation ivet, symmetrical, unlabored. ABSENT: rales, rhonchi, wheezes Cardiovascular exam: PRESENT: RRR, +S1, +S2. ABSENT: diastolic murmur, rubs, systolic murmur Pulses: PRESENT: normal dorsalis pedis pul Vascular exam: PRESENT: normal capillary refill GI/Abdominal exam: PRESENT: normal bowel sounds, soft. ABSENT: distended, guarding, mass, organolmegaly, rebound, tenderness Rectal exam: PRESENT: deferred Extremities exam: PRESENT: full ROM. ABSENT: calf tenderness, clubbing, pedal edema Neurological exam: PRESENT: alert, awake, oriented to person, oriented to place, oriented to time, oriented to situation, CN II-XII grossly intact. ABSENT: motor sensory deficit Psychiatric exam: PRESENT: anxious, depressed, flat affect. ABSENT: homicidal ideation, suicidal ideation Skin exam: PRESENT: dry, intact, warm. ABSENT: cyanosis, rash Results Laboratory Results: 11/14/19 16:30 11/14/19 16:30 11/14/19 11/14/19 11/14/19 16:30 16:30 21:58 Creatine Kinase 67 CK-MB (CK-2) 1.34 Troponin I < 0.012 < 0.012 11/15/19 11:49 Creatine Kinase 59 CK-MB (CK-2) Troponin I Impressions: Chest X-Ray 11/14/19 16:49 IMPRESSION: NO ACUTE RADIOGRAPHIC FINDING IN THE CHEST. Head CT 11/14/19 17:01 IMPRESSION: No acute intracranial hemorrhage, mass, or evidence of acute territorial infarct. EVIDENCE OF ACUTE STROKE: NO. Carotid Doppler Study 11/15/19 00:00 IMPRESSION: NO HEMODYNAMICALLY SIGNIFICANT STENOSIS. Head MRI 11/15/19 00:00 IMPRESSION: NORMAL MRI OF THE BRAIN WITHOUT INTRAVENOUS GADOLINIUM CONTRAST. EVIDENCE OF ACUTE STROKE: NO. Assessment and Plan - Diagnosis (1) Episode of shaking Is this a current diagnosis for this admission?: Yes Plan: Patient has had multiple witnessed episodes of seizure-like activity, though with retained alertness, lack of incontinence, and atypical body posturing/movements. Prolactin 15.0. EEG was poor quality study and complicated by having recently received p.o. Xanax. Further limited by motion artifact. CT of the head, head MRI, and carotid Doppler are all benign. Low suspicion for underlying seizure disorder. Patient does admit to life stressors but is unable to expand further; will ask mental health services to provide evaluation recommendations. (2) Chest pain Qualifiers: Chest pain type: unspecified Qualified Code(s): R07.9 - Chest pain, unspecified Is this a current diagnosis for this admission?: Yes Plan: Patient was admitted to the medical floor on continuous cardiac telemetry. EKG was benign; NSR without ST segment changes. Occasionally noted to be tachycardic on telemetry. Serial troponins are negative. Patient has had no further report of chest discomfort. Low suspicion for cardiac source of her discomfort. Likely psychosomatic (3) Syncope Qualifiers: Syncope type: unspecified Qualified Code(s): R55 - Syncope and collapse Is this a current diagnosis for this admission?: Yes Plan: No abnormal findings on telemetry. Echocardiogram shows LVEF 55 to 60% with normal LV systolic and diastolic function. No significant valve disease noted. Fall precautions. (4) Stress Is this a current diagnosis for this admission?: Yes Plan: Patient was admitted for complaint of syncopal episode with seizure-like activity; multiple seizure-like episodes occurring while admitted, and nonspecific/vague chest discomfort. Patient does admit to life stressors but is unable to expand further; will ask mental health services to provide evaluation recommendations. - Time Time Spent with patient: 35 or more minutes Medications reviewed and adjusted accordingly: Yes Anticipated discharge: Home Within: within 24 hours - pending mental health eval
[2019-11-16] MEDS: ACETAMINOPHEN 325 MG TABLET PO PRN (20:26)
[2019-11-17] MEDS: HEPARIN SOD (PORCINE) 5,000 UNIT/ML 1 ML VIAL SUBCUT SCH ×3 (05:21→21:39)
[2019-11-17] MEDS: BUTALB/ACETAMINOPHEN/CAFFEINE 1 TAB EACH PO PRN ×3 (06:20→15:39)
[2019-11-17] MEDS: ONDANSETRON HCL INJ/PF 4 MG/2 ML SDV IV PRN ×2 (06:21→17:42)
[2019-11-17] MEDS: ACETAMINOPHEN 325 MG TABLET PO PRN ×2 (09:13→21:34)
[2019-11-17] MEDS: FAMOTIDINE 20 MG TABLET PO SCH ×2 (09:13→21:37)
[2019-11-17] MEDS: TOPIRAMATE 100 MG TABLET PO SCH (09:14)
[2019-11-17] MEDS: ALPRAZOLAM 0.5 MG TABLET PO PRN ×2 (10:55→17:39)
--- NOTE | 2019-11-17 17:47 | PSYCHOLOGICAL NOTE ---
Psych Note - Psych Note Date seen by psych provider: 11/17/19 Time seen by psych provider: 14:50 Psych Note: Reason For Consult:Anxiety, depression, seizure-like activity Medication recommendations per [facility]'s contracted psychiatrist Dr. Elyssa GRAY are as follows Discontinue home medication of Xanax Please add Buspar 5mg TID Please add Celexa 10mg daily Impression\plan:Patient does not meet IVC criteria per [place] GS 122C. The patient is demonstrating significant emptional distress reulting in her seizure-like activity. Clinician notes when patient is pressed to talk about upsetting events she began to demonstrate this activity again with quick breathing, curl ing to her side, shaking, closing her eyes. Clinician notes that patient was holding clinician's hand during this event and there was no noted muscle change i.e. no gripping of hand. Patient will be seen again tomorrow for check-in purposes if still active patient of [facility]. Medication recommendations have been provided. Patient is highly encouraged to follow through with therapeutic services. Dr. Martini was consulted to care management of this patient; attending physicians in agreement with recommendations and disposition.
[2019-11-17] MEDS: BUSPIRONE HCL 10 MG TABLET PO SCH (21:37)
--- NOTE | 2019-11-17 21:49 | PDOC PROGRESS REPORT ---
Subjective Progress Note for:: 11/17/19 Subjective:: Patient was seen on iron rounds with her daughter present. She was noted to be lying in bed, comfortably, on room air. She is disheveled and intermittently tearful during our conversation. Long discussion had regarding possibility of syncopal episodes\seizure-like a ctivity be related to mental health and social stressors. Discussed the real physical symptoms associated with somatic disorders. Discussed recommendations by the mental health team to begin Celexa and BuSpar. The patient does appear to become quite anxious but is able to self soothe without seizure-like activity and continue participating in discussion. She is quite anxious about discharge to home this evening; request to receive first doses of her medications tonight with discharge tomorrow in order to allow herself to mentally prepare. This will also allow our mental health team to provide a follow-up check-in as they have planned. She denies fever, chills, chest pain, palpitations, dyspnea, orthopnea, abdominal pain, nausea, vomiting, diarrhea. She does report poor appetite. All questions and concerns addressed; discussed recommendations for close follow-up with her primary care provider, not stopping restarting medications without first discussing this with her provider, avoiding alcohol and recreational drug use, and continuing with neurology consultation (perhaps neuropsychology) as previously discussed should her symptoms persist despite medication compliance with antianxiety and antidepressant medications. Reason For Visit: SYNCOPE,CHEST PAIN,SEIZURE LIKE ACTIVITY Physical Exam Vital Signs: Temp Pulse Resp BP Pulse Ox 98.2 F 78 18 120/77 100 11/17/19 18:13 11/17/19 18:13 11/17/19 18:13 11/17/19 18:13 11/17/19 18:13 Intake & Output 11/16/19 11/17/19 11/18/19 06:59 06:59 06:59 Intake Total 1548 240 460 Output Total 400 Balance 1548 -160 460 Weight 49.9 kg 48.9 kg General appearance: PRESENT: no acute distress, cooperative, disheveled, thin, well-developed, well-nourished Head exam: PRESENT: atraumatic, normocephalic Eye exam: PRESENT: conjunctiva pink, EOMI, PERRLA. ABSENT: scleral icterus Ear exam: PRESENT: normal external ear exam Mouth exam: PRESENT: moist, tongue midline Neck exam: ABSENT: carotid bruit, JVD, lymphadenopathy, thyromegaly Respiratory exam: PRESENT: clear to auscultation ivet, symmetrical, unlabored. ABSENT: rales, rhonchi, wheezes Cardiovascular exam: PRESENT: RRR, tachycardia. ABSENT: diastolic murmur, rubs, systolic murmur Pulses: PRESENT: normal dorsalis pedis pul Vascular exam: PRESENT: normal capillary refill GI/Abdominal exam: PRESENT: normal bowel sounds, soft. ABSENT: distended, guarding, mass, organolmegaly, rebound, tenderness Rectal exam: PRESENT: deferred Extremities exam: PRESENT: full ROM. ABSENT: calf tenderness, clubbing, pedal edema Musculoskeletal exam: PRESENT: ambulatory Neurological exam: PRESENT: alert, awake, oriented to person, oriented to place, oriented to time, oriented to situation, CN II-XII grossly intact. ABSENT: motor sensory deficit Psychiatric exam: PRESENT: anxious, appropriate affect, normal mood. ABSENT: homicidal ideation, suicidal ideation Skin exam: PRESENT: dry, intact, warm. ABSENT: cyanosis, rash Results Laboratory Results: 11/14/19 16:30 11/14/19 16:30 11/14/19 11/14/19 11/14/19 16:30 16:30 21:58 Creatine Kinase 67 CK-MB (CK-2) 1.34 Troponin I < 0.012 < 0.012 11/15/19 11:49 Creatine Kinase 59 CK-MB (CK-2) Troponin I Impressions: Chest X-Ray 11/14/19 16:49 IMPRESSION: NO ACUTE RADIOGRAPHIC FINDING IN THE CHEST. Head CT 11/14/19 17:01 IMPRESSION: No acute intracranial hemorrhage, mass, or evidence of acute territorial infarct. EVIDENCE OF ACUTE STROKE: NO. Carotid Doppler Study 11/15/19 00:00 IMPRESSION: NO HEMODYNAMICALLY SIGNIFICANT STENOSIS. Head MRI 11/15/19 00:00 IMPRESSION: NORMAL MRI OF THE BRAIN WITHOUT INTRAVENOUS GADOLINIUM CONTRAST. EVIDENCE OF ACUTE STROKE: NO. Assessment and Plan - Diagnosis (1) Depression with anxiety Is this a current diagnosis for this admission?: Yes Plan: Appreciate the mental health team evaluation and recommendations. Have started medications per their recommendations; Celexa 10 mg nightly with BuSpar 5 mg 3 times daily. Mental health team plans for follow-up check-in tomorrow with possible further recommendations to follow. (2) Episode of shaking Is this a current diagnosis for this admission?: Yes Plan: Patient has had multiple witnessed episodes of seizure-like activity, though with retained alertness, lack of incontinence, and atypical body posturing/m ovements. Prolactin 15.0. EEG was poor quality study and complicated by having recently received p.o. Xanax. Further limited by motion artifact. CT of the head, head MRI, and carotid Doppler are all benign. Low suspicion for underlying seizure disorder. Patient does admit to life stressors but is unable to expand further; will ask mental health services to provide evaluation recommendations. Appreciate mental health evaluation and recommendations; will start BuSpar and Celexa per their recommendations. Continue observation overnight. (3) Chest pain Qualifiers: Chest pain type: unspecified Qualified Code(s): R07.9 - Chest pain, unspecified Is this a current diagnosis for this admission?: Yes Plan: Patient was admitted to the medical floor on continuous cardiac telemetry. EKG was benign; NSR without ST segment changes. Occasionally noted to be tachycardic on telemetry. Serial troponins are negative. Patient has had no further report of chest discomfort. Low suspicion for cardiac source of her discomfort. Likely psychosomatic Medications as above. (4) Syncope Qualifiers: Syncope type: unspecified Qualified Code(s): R55 - Syncope and collapse Is this a current diagnosis for this admission?: Yes Plan: No abnormal findings on telemetry. Echocardiogram shows LVEF 55 to 60% with normal LV systolic and diastolic function. No significant valve disease noted. Fall precautions. (5) Stress Is this a current diagnosis for this admission?: Yes Plan: Patient was admitted for complaint of syncopal episode with seizure-like activity; multiple seizure-like episodes occurring while admitted, and nonspecific/vague chest discomfort. Appreciate mental health evaluation. Medications as above. - Time Time Spent with patient: 35 or more minutes Medications reviewed and adjusted accordingly: Yes Anticipated discharge: Home Within: Other - Likely within 24 hours pending mental health follow-up.
[2019-11-17] MEDS ORDERED: CITALOPRAM HYDROBROMIDE 20 MG TABLET PO SCH (22:00)
[2019-11-18] MEDS: ACETAMINOPHEN 325 MG TABLET PO PRN ×4 (02:58→17:16)
[2019-11-18] MEDS: ONDANSETRON HCL INJ/PF 4 MG/2 ML SDV IV PRN ×2 (02:59→12:13)
[2019-11-18] MEDS: HEPARIN SOD (PORCINE) 5,000 UNIT/ML 1 ML VIAL SUBCUT SCH ×2 (06:00→13:11)
[2019-11-18] MEDS: BUSPIRONE HCL 10 MG TABLET PO SCH ×2 (06:03→13:11)
[2019-11-18] MEDS: FAMOTIDINE 20 MG TABLET PO SCH (09:22)
[2019-11-18] MEDS: TOPIRAMATE 100 MG TABLET PO SCH (09:22)
[2019-11-18 18:06] VITALS: BP 124/80
--- NOTE | 2019-11-24 13:24 | PDOC DISCHARGE SUMMARY ---
Impression - Admit/DC Date/PCP Admission Date/Primary Care Provider: 11/15/19 01:31 ZENAIDA MILLER Discharge Date: 11/18/19 - Discharge Diagnosis (1) Depression with anxiety Is this a current diagnosis for this admission?: Yes (2) Episode of shaking Is this a current diagnosis for this admission?: Yes (3) Chest pain Is this a current diagnosis for this admission?: Yes (4) Syncope Is this a current diagnosis for this admission?: Yes (5) Stress Is this a current diagnosis for this admission?: Yes - Additional Information Resuscitation Status: Full Code Discharge Diet: Regular Discharge Activity: Activity As Tolerated, Balance Activity w/Rest Referrals: ZENAIDA MILLER PA-C [Primary Care Provider] - 11/29/19 11:40 am Prescriptions: Buspirone HCl [Buspar 10 mg Tablet] 5 mg PO Q8 #90 tablet Citalopram Hydrobromide [Celexa 20 mg Tablet] 10 mg PO QHS #30 tablet Butalbital/Aspirin/Caffeine [Fiorinal 50-325-40 mg Capsule] 1 cap PO Q4HP PRN #20 cap PRN Reason: For Headache Topiramate [Topamax 100 mg Tablet] 100 mg PO DAILY #30 tablet Home Medications: Alprazolam 1 tab PO BIDP PRN 03/04/16 Estradiol 1 mg PO DAILY 03/04/16 Estrogens,Conjugated [Premarin 1.25 mg Tablet] 1.25 mg PO DAILY 11/15/19 Buspirone HCl [Buspar 10 mg Tablet] 5 mg PO Q8 #90 tablet 11/18/19 Butalbital/Aspirin/Caffeine [Fiorinal 50-325-40 mg Capsule] 1 cap PO Q4HP PRN #20 cap 11/18/19 Citalopram Hydrobromide [Celexa 20 mg Tablet] 10 mg PO QHS #30 tablet 11/18/19 Topiramate [Topamax 100 mg Tablet] 100 mg PO DAILY #30 tablet 11/18/19 History of Present Illiness History of Present Illness: H&P per Dr. Cloud: PERCY GUERRIER is a 44 year old female with a past medical history of migraine headaches and not much else [place] She states that she passed out in the truck. People driving with her reported that she was shaking. When she woke up she was still shaking. She does not remember the event. There are various symptoms that she reports over the several days prior including chest pain. It was dull and constant but she also characterizes it as shooting. She felt lightheaded and nauseous but no vomiting. She states that she had diplopia yesterday. There was no urinary incontinence and no tongue biting. She reports that nothing has happened like this before. The emergency department she was shaking and Dr. Daniel was able to talk her through to settle her and stop shaking. Evaluation revealed a normal CT scan and chest x-ray. EKG was normal. Serum chemistries and CBC were normal as well. Her troponins were less than 0.012. She will be admitted to the hospital service and monitored on telemetry overnight. Hospital Course Hospital Course: (1) Depression with anxiety Mental health team was consulted. Have started medications per their recommendations; Celexa 10 mg nightly with BuSpar 5 mg 3 times daily. (2) Episode of shaking Patient has had multiple witnessed episodes of seizure-like activity, though with retained alertness, lack of incontinence, and atypical body posturing/movements. Prolactin 15.0. EEG was poor quality study and complicated by having recently received p.o. Xanax. Further limited by motion artifact. CT of the head, head MRI, and carotid Doppler are all benign. Low suspicion for underlying seizure disorder. Recommend outpatient neuropsychology follow up. (3) Chest pain Patient was admitted to the medical floor on continuous cardiac telemetry. EKG was benign; NSR without ST segment changes. Occasionally noted to be tachycardic on telemetry. Serial troponins are negative. Patient has had no further report of chest discomfort. Low suspicion for cardiac source of her discomfort. Likely psychosomatic (4) Syncope No abnormal findings on telemetry. Echocardiogram shows LVEF 55 to 60% with normal LV systolic and diastolic function. No significant valve disease noted. (5) Stress Patient was admitted for complaint of syncopal episode with seizure-like activity; multiple seizure-like episodes occurring while admitted, and nonspecific/vague chest discomfort. Appreciate mental health evaluation. Medications as above. Physical Exam Vital Signs: Temp Pulse Resp BP Pulse Ox 98.2 F 81 18 124/80 100 11/18/19 18:05 11/18/19 18:05 11/18/19 18:05 11/18/19 18:05 11/18/19 18:05 General appearance: PRESENT: no acute distress, cooperative, thin, well- developed, well-nourished Head exam: PRESENT: atraumatic, normocephalic Eye exam: PRESENT: conjunctiva pink, EOMI, PERRLA. ABSENT: scleral icterus Mouth exam: PRESENT: moist, tongue midline Respiratory exam: PRESENT: clear to auscultation ivet, symmetrical, unlabored. ABSENT: rales, rhonchi, wheezes Cardiovascular exam: PRESENT: RRR. ABSENT: diastolic murmur, rubs, systolic murmur Vascular exam: PRESENT: normal capillary refill Rectal exam: PRESENT: deferred Extremities exam: PRESENT: full ROM. ABSENT: calf tenderness, clubbing, pedal edema Neurological exam: PRESENT: alert, awake, oriented to person, oriented to place, oriented to time, oriented to situation, CN II-XII grossly intact. ABSENT: motor sensory deficit Psychiatric exam: PRESENT: anxious, depressed. ABSENT: homicidal ideation, suicidal ideation Skin exam: PRESENT: dry, intact, warm. ABSENT: cyanosis, rash Results Laboratory Results: WBC 6.8 10^3/uL (4.0-10.5) 11/14/19 16:30 RBC 3.66 10^6/uL (3.72-5.28) L 11/14/19 16:30 Hgb 12.4 g/dL (12.0-15.5) 11/14/19 16:30 Hct 34.8 % (36.0-47.0) L 11/14/19 16:30 MCV 95 fl (80-97) 11/14/19 16:30 MCH 33.9 pg (27.0-33.4) H 11/14/19 16:30 MCHC 35.7 g/dL (32.0-36.0) 11/14/19 16:30 RDW 12.5 % (11.5-14.0) 11/14/19 16:30 Plt Count 359 10^3/uL (150-450) 11/14/19 16:30 Lymph % (Auto) 35.0 % (13-45) 11/14/19 16:30 [place] % (Auto) 6.5 % (3-13) 11/14/19 16:30 Eos % (Auto) 0.9 % (0-6) 11/14/19 16:30 Baso % (Auto) 0.8 % (0-2) 11/14/19 16:30 Absolute Neuts (auto) 3.9 10^3/uL (1.7-8.2) 11/14/19 16:30 Absolute Lymphs (auto) 2.4 10^3/uL (0.5-4.7) 11/14/19 16:30 Absolute Monos (auto) 0.4 10^3/uL (0.1-1.4) 11/14/19 16:30 Absolute Eos (auto) 0.1 10^3/uL (0.0-0.6) 11/14/19 16:30 Absolute Basos (auto) 0.1 10^3/uL (0.0-0.2) 11/14/19 16:30 Seg Neutrophils % 56.8 % (42-78) 11/14/19 16:30 Sodium 141.0 mmol/L (137-145) 11/14/19 16:30 Potassium 3.7 mmol/L (3.6-5.0) 11/14/19 16:30 Chloride 107 mmol/L (98-107) 11/14/19 16:30 Carbon Dioxide 26 mmol/L (22-30) 11/14/19 16:30 Anion Gap 8 (5-19) 11/14/19 16:30 BUN 12 mg/dL (7-20) 11/14/19 16:30 Creatinine 0.83 mg/dL (0.52-1.25) 11/14/19 16:30 Est GFR ( Amer) > 60 (>60) 11/14/19 16:30 Est GFR (MDRD) Non-Af > 60 (>60) 11/14/19 16:30 Glucose 89 mg/dL (75-110) 11/14/19 16:30 Calcium 9.5 mg/dL (8.4-10.2) 11/14/19 16:30 Magnesium 2.1 mg/dL (1.6-2.3) 11/14/19 16:30 Total Bilirubin 0.3 mg/dL (0.2-1.3) 11/14/19 16:30 Direct Bilirubin 0.0 mg/dL (0.0-0.4) 11/14/19 16:30 Neonat Total Bilirubin Not Reportable 11/14/19 16:30 Neonat Direct Bilirubin Not Reportable 11/14/19 16:30 Neonat Indirect Bili Not Reportable 11/14/19 16:30 AST 22 U/L (14-36) 11/14/19 16:30 ALT 10 U/L (<35) 11/14/19 16:30 Alkaline Phosphatase 52 U/L (38-126) 11/14/19 16:30 Creatine Kinase 59 U/L (30-135) 11/15/19 11:49 CK-MB (CK-2) 1.34 ng/mL (<4.55) 11/14/19 16:30 Troponin I < 0.012 ng/mL 11/14/19 21:58 Total Protein 7.0 g/dL (6.3-8.2) 11/14/19 16:30 Albumin 4.2 g/dL (3.5-5.0) 11/14/19 16:30 Prolactin 15.0 ng/mL (3.0-18.6) 11/14/19 16:30 Urine Color COLORLESS 11/14/19 17:01 Urine Appearance CLEAR 11/14/19 17:01 Urine pH 7.0 (5.0-9.0) 11/14/19 17:01 Ur Specific [place] 1.004 11/14/19 17:01 Urine Protein NEGATIVE mg/dL (NEGATIVE) 11/14/19 17:01 Urine Glucose (UA) NEGATIVE mg/dL (NEGATIVE) 11/14/19 17:01 Urine Ketones NEGATIVE mg/dL (NEGATIVE) 11/14/19 17:01 Urine Blood SMALL (NEGATIVE) H 11/14/19 17:01 Urine Nitrite NEGATIVE (NEGATIVE) 11/14/19 17:01 Urine Bilirubin NEGATIVE (NEGATIVE) 11/14/19 17:01 Urine Urobilinogen NEGATIVE mg/dL (<2.0) 11/14/19 17:01 Ur Leukocyte Esterase NEGATIVE (NEGATIVE) 11/14/19 17:01 Urine WBC (Auto) 0 /HPF 11/14/19 17:01 Urine RBC (Auto) 0 /HPF 11/14/19 17:01 U Hyaline Cast (Auto) 1 /LPF 11/14/19 17:01 Squamous Epi Cells Auto 3 /HPF 11/14/19 17:01 Urine Ascorbic Acid NEGATIVE (NEGATIVE) 11/14/19 17:01 Urine Opiates Screen NEGATIVE 11/14/19 17:01 Urine Methadone Screen NEGATIVE 11/14/19 17:01 Ur Barbiturates Screen NEGATIVE 11/14/19 17:01 Ur Phencyclidine Scrn NEGATIVE 11/14/19 17:01 Ur Amphetamines Screen NEGATIVE 11/14/19 17:01 U Benzodiazepines Scrn UNCONFIRMED POSITIVE 11/14/19 17:01 Urine Cocaine Screen NEGATIVE 11/14/19 17:01 U Marijuana (THC) Screen NEGATIVE 11/14/19 17:01 11/14/19 11/14/19 16:30 21:58 CK-MB (CK-2) 1.34 Troponin I < 0.012 < 0.012 Impressions: Chest X-Ray 11/14/19 16:49 IMPRESSION: NO ACUTE RADIOGRAPHIC FINDING IN THE CHEST. Head CT 11/14/19 17:01 IMPRESSION: No acute intracranial hemorrhage, mass, or evidence of acute territorial infarct. EVIDENCE OF ACUTE STROKE: NO. Carotid Doppler Study 11/15/19 00:00 IMPRESSION: NO HEMODYNAMICALLY SIGNIFICANT STENOSIS. Head MRI 11/15/19 00:00 IMPRESSION: NORMAL MRI OF THE BRAIN WITHOUT INTRAVENOUS GADOLINIUM CONTRAST. EVIDENCE OF ACUTE STROKE: NO. Plan Plan of Treatment: The patient was discharged home in stable condition. She is advised to follow-up with her primary care provider within 1 week. Recommend outpatient referral to neuropsychology and/or neurology. Take medication as prescribed. Eat a heart healthy diet. Do NOT smoke. Return to emergency department as needed for concerning symptoms. Time Spent: Greater than 30 Minutes Stroke Is this a Stroke Patient?: No Acute Heart Failure - Is this a Heart Failure Patient?: No
== END 2019-11-18 18:25 | disposition home or self-care (01) ==
LOC: ER 16:19 → EH 11-15 01:31 → 4W 11-15 02:33 → 4S 11-16 19:15
PROVIDERS: ADMIT Hospitalist; ATTEND Registered Nurse
DX: F41.8 Other specified anxiety disorders (principal); R07.89 Other chest pain; R55 Syncope and collapse; R25.1 Tremor, unspecified; Z73.3 Stress, not elsewhere classified; R11.0 Nausea; H53.2 Diplopia; R00.0 Tachycardia, unspecified; R51 Headache; L29.9 Pruritus, unspecified; Z79.899 Other long term (current) drug therapy; Z87.891 Personal history of nicotine dependence; Z82.49 Family history of ischemic heart disease and other diseases of the circulatory system
CPT/HCPCS: 95819 ×2; 93005; 99285; 96361; 96374; 96375; 36415 ×2; 82553; 82550 ×2; 83735; 85025; 80053; 81001; 84484; 80307; 84146; 93306; 93880; 70551; 71045; 70450; 93010; G0378 ×4; J3490 ×11; J1644 ×3; J1885; J2060; J2405 ×5; J7030; J7120

== ENCOUNTER → 2020-07-25 | Outpatient (CLI) | payer BC ==
--- NOTE | 2020-07-25 11:35 | ER RDC ASSESSMENT REPORT ---
Intake - In the Last 14 days Have you traveled outside [place]?: No Have you been in close contact with someone CONFIRMED: Yes Worked in Healthcare?: Yes - Symptoms Subjective Fever([place] feverish): No Chills: No Muscule Aches: No Runny Nose: No Sore Throat: No Cough (New or worsening chronic cough): No Shortness of breath: No Nausea or Vomiting: Yes Headache: Yes Abdominal Pain: No Diarrhea(3 or more loose stools in last 24 hours): Yes - Do you have any of the following Chronic lung disease: Asthma or emphysema or COPD: Yes Chronic Lung Disease Comment: copd Cystic Fibrosis: No Diabetes: No High Blood Pressure: No Cardiovascular Disease: No Chronic Kidney Disease: No Chronic Liver Disease: No Chronic blood disorder like Sickle Cell Disease: No Weak immune system due to disease or medication: No Neurologic condition that limits movement: No Developmental delay - Moderate to Severe: No Recent (within past 2 weeks) or current : No Morbid Obesity (>100 pounds over ideal weight): No - Objective Temperature: 98.7 F Pulse Rate: 58 Respiratory Rate: 16 Blood Pressure: 109/58 O2 Sat by Pulse Oximetry: 96 Objective: Given above, testing performed: If Testing Performed: Test Specimen Type Sent to General - General Information source: Patient Notes: Patient presents complaining of recent exposure to coronavirus at work. Patient reports developing symptoms today including diarrhea, headache and nausea. Patient does have history of underlying COPD. - Related Data Allergies/Adverse Reactions: No Known Allergies Allergy (Verified 11/08/12 11:45) Past Medical History - General Information source: Patient - Social History Smoking Status: Former Smoker Family History: CAD, Other - [place] - Past Medical History Cardiac Medical History: Denies: Hx Coronary Artery Disease, Hx Heart Attack, Hx Hypertension Pulmonary Medical History: Reports: Hx COPD, Hx Pneumonia Denies: Hx Asthma, Hx Bronchitis Neurological Medical History: Reports: Hx Migraine. Denies: Hx Cerebrovascular Accident, Hx Seizures Musculoskeletal Medical History: Denies Hx Arthritis Psychiatric Medical History: Reports: Hx Anxiety, Hx Depression Past Surgical History: Reports: Hx Hysterectomy Physical Exam - Notes Notes: The patient was evaluated during the global Covid 19 pandemic, and that diagno sis was suspected/considered upon their initial presentation. Their evaluation, treatment and testing was consistent with current guidelines for patients who present with complaints or symptoms that may be related to Covid 19. Full physical exam could not be performed due to covid 19 isolation protocols. Constitutional: Nontoxic appearance, no acute distress Eyes: Nonicteric, extraocular movements intact, sclera clear Cardiovascular: Heart rate and rhythm regular, no JVD Respiratory: Breath sounds clear bilaterally, nonlabored breathing, no use of accessory muscles, no tachypnea Gastrointestinal: Abdomen not distended Muculoskeletal: Moves all extremities well Skin: Normal color Neuro: Awake alert oriented, normal speech Psych: Normal mood and affect Diagnostic Results Laboratory Results: Patient presents with symptoms worrisome for possible Covid 19. Patient does not have emergency worrying symptoms such as difficulty breathing, shortness of breath, chest pain, pressure, confusion or cyanosis. Patient appears suitable for discharge as vital signs are stable and patient is nontoxic in appearance. Good return precautions have been discussed with patient, patient verbalized understanding and is agreeable with discharge plan of care at this time. Patient Education/Counseling Counseling/Education: Patient was provided with discharge information including: As a person under investigation for Covid 19, the [place] department of Health and Human Services, division of public health advises you to adhere to the following guidance until your test results are reported to you. If your test result is positive, you will receive additional information from your provider and your local health department at that time. Remain at home until you are cleared by the health provider or public health authorities. Keep a log of visitors to your home, notify any visitors to your home of your isolation status. If you plan to move to a new address or leave the county, notify the local health department in your County. Call your doctor or seek care if you have an urgent medical need. Before seeking medical care, call ahead to get instructions from the provider before arriving at the medical office clinic or hospital. Notify them that you are being tested for the virus that causes Covid 19 so that arrangements can be made, as necessary, to prevent transmission to others in the healthcare setting. Next, notify the local health department in your county. If a medical emergency arises and you need to call 911, inform the first responders that you are being tested for the virus that causes Covid 19. Next, notify the local health department in your county. RDC Discharge - Discharge Clinical Impression: Exposure to COVID-19 virus, Encounter for screening laboratory testing for COVID-19 virus Condition: Stable Disposition: Home; Selfcare
[2020-07-25 11:44] VITALS: BP 109/58
== END ==
LOC: RDC 11:05
PROVIDERS: ATTEND Nurse Practitioner Family
DX: Z20.828 Contact with and (suspected) exposure to other viral communicable diseases (principal)
CPT/HCPCS: 99201; 99211; U0003; C9803; 87635